=== PATIENT | female | born 2000 | race Caucasian/White ===

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

== ENCOUNTER 2018-02-18 18:29 | Emergency (ER) | payer OTHER ==
[~2018-02-18] VITALS: Ht 167.6 cm; Wt 59.1 kg
[2018-02-18 18:31] VITALS: TEMP 97.4
[2018-02-18 18:55] LABS: BASO % 0.6 % (0.0-2.0); EOS # 0.5 (0.0-0.7); EOS % 8.4 % (0-4.0); GRAN # 2.9 (1.4-6.5); GRAN % 47.2 % (42.2-75.2); HEMOGLOBIN 11.2 g/dl (12.0-15.0); LYMPH # 2.2 (1.2-3.4); LYMPH % 35.7 % (20.0-51.0); MEAN CELL VOLUME 88 fl (80.0-95.0); MEAN CORPUSCULAR HEMOGLOBIN 29 pg (26.0-32.0); MEAN CORPUSCULAR HGB CONC 33 g/dl (33.0-37.0); MEAN PLATELET VOLUME 10.1 fl (7.4-10.4); MONO # 0.5 (0.1-0.6); MONO % 7.9 % (1.7-9.3); PLATELET COUNT 235 K/mm3 (130-400); RED BLOOD COUNT 3.89 M/mm3 (4.10-5.30); REDCELL DISTRIBUTION WIDTH-CV 12.4 % (11.5-14.5)
[2018-02-18 18:58] LABS: HEMATOCRIT 34.1 % (35.0-45.0)
[2018-02-18 19:12] LABS: ALBUMIN 4.2 gm/dL (3.5-5.0); BILIRUBIN,TOTAL 0.2 mg/dL (0.0-1.0); CALCIUM 8.9 mg/dL (8.4-10.2); CREATININE, serum 0.69 mg/dL (0.52-1.25); POTASSIUM 3.6 mmol/L (3.4-5.0); TOTAL PROTEIN 6.8 gm/dL (6.4-8.2)
[2018-02-18] MEDS ORDERED: FLEXERIL5 MG PO (19:47)
[2018-02-18 19:56] VITALS: BP 122/77; PULSE 85
== END 2018-02-18 19:56 | disposition home or self-care (01) ==
LOC: COL.ER 18:29
PROVIDERS: Emergency Medicine
DX: S09.90XA Unspecified injury of head, initial encounter (principal); S00.93XA Contusion of unspecified part of head, initial encounter; S93.401A Sprain of unspecified ligament of right ankle, initial encounter; S13.4XXA Sprain of ligaments of cervical spine, initial encounter; F17.210 Nicotine dependence, cigarettes, uncomplicated; V43.62XA Car passenger injured in collision with other type car in traffic accident, initial encounter

== ENCOUNTER 2019-02-15 17:45 | Emergency (ER) | payer OTHER ==
[~2019-02-15] VITALS: Ht 167.6 cm; Wt 60.5 kg
[~2019-02-15 17:45] MED LIST changes: +FLEXERIL5 MG PO
[2019-02-15] MEDS ORDERED: WELLBUTRIN SR150 M1 (17:58)
[2019-02-15 19:16] LABS: CALCIUM 9.9 mg/dL (8.4-10.2); CREATININE, serum 0.83 (0.52-1.25); POTASSIUM 3.9 mmol/L (3.4-5.0)
[2019-02-15 20:16] VITALS: BP 132/82; PULSE 83; TEMP 98.4
== END 2019-02-15 20:11 | disposition home or self-care (01) ==
LOC: COL.ER 17:45
PROVIDERS: Nurse Practitioner
DX: T67.3XXA Heat exhaustion, anhydrotic, initial encounter (principal); F32.9 Major depressive disorder, single episode, unspecified; F41.9 Anxiety disorder, unspecified; F17.210 Nicotine dependence, cigarettes, uncomplicated; F12.90 Cannabis use, unspecified, uncomplicated; Z88.0 Allergy status to penicillin
CPT/HCPCS: J7030

== ENCOUNTER 2019-02-26 14:24 | Emergency (ER) | payer OTHER ==
[~2019-02-26] VITALS: Ht 167.6 cm; Wt 54.5 kg
[~2019-02-26 14:24] MED LIST changes: +WELLBUTRIN SR150 M1
[2019-02-26 14:31] VITALS: BP 115/65; TEMP 98.5
[2019-02-26 15:42] LABS: STREP SCREEN NEGATIVE
[2019-02-26 16:02] VITALS: PULSE 100
== END 2019-02-26 16:02 | disposition home or self-care (01) ==
LOC: COL.ER 14:24
PROVIDERS: Nurse Practitioner Primary Care
DX: J02.8 Acute pharyngitis due to other specified organisms (principal); F41.9 Anxiety disorder, unspecified; F32.9 Major depressive disorder, single episode, unspecified; F17.210 Nicotine dependence, cigarettes, uncomplicated; Z88.0 Allergy status to penicillin
CPT/HCPCS: J1885

== ENCOUNTER 2019-04-03 23:56 | Emergency (ER) | payer OTHER ==
[~2019-04-03] VITALS: Ht 167.6 cm; Wt 54.5 kg
[2019-04-04 00:02] VITALS: TEMP 97.8
[2019-04-04 00:52] LABS: BASO # 0.1 (0.0-0.2); BASO % 0.8 % (0.0-2.0); EOS # 0.2 (0.0-0.7); EOS % 2.1 % (0-4.0); GRAN # 5.3 (1.4-6.5); GRAN % 58.8 % (42.2-75.2); HEMOGLOBIN 13.4 g/dl (12.0-15.0); LYMPH # 2.7 (1.2-3.4); LYMPH % 29.8 % (20.0-51.0); MEAN CELL VOLUME 84 fl (80.0-95.0); MEAN CORPUSCULAR HEMOGLOBIN 29 pg (26.0-32.0); MEAN CORPUSCULAR HGB CONC 34 g/dl (33.0-37.0); MEAN PLATELET VOLUME 9.5 fl (7.4-10.4); MONO # 0.7 (0.1-0.6); MONO % 8.2 % (1.7-9.3); PLATELET COUNT 296 K/mm3 (130-400); RED BLOOD COUNT 4.65 M/mm3 (4.10-5.30); REDCELL DISTRIBUTION WIDTH-CV 13.8 % (11.5-14.5)
[2019-04-04 01:05] LABS: ALANINE AMINOTRANSFERASE 8 U/L (9-52); ALBUMIN 4.9 gm/dL (3.5-5.0); ALKALINE PHOSPHATASE 83 U/L (50-136); ANION GAP 13 mmol/L (7-16); AST,SGOT 17 U/L (15-37); BILIRUBIN,TOTAL 1.1 mg/dL (0.0-1.0); BLOOD UREA NITROGEN 15 mg/dL (7-17); CALCIUM 9.8 mg/dL (8.4-10.2); CARBON DIOXIDE 19 mmol/L (22-30); CHLORIDE 106 mmol/L (98-107); CREATININE, serum 0.79 (0.52-1.25); GLUCOSE 78 mg/dL (74-106); POTASSIUM 3.7 mmol/L (3.4-5.0); SODIUM 138 mmol/L (137-145); TOTAL PROTEIN 7.9 gm/dL (6.4-8.2)
[2019-04-04 01:06] LABS: ACETAMINOPHEN < 10 ug/mL (10-30); ALCOHOL(ethanol),MEDICAL < 10 mg/dL; C-REACTIVE PROTEIN < 0.5 mg/dL (0.0-0.9); SALICYLATE < 1.0 mg/dL
[2019-04-04 05:16] VITALS: BP 120/78; PULSE 86
== END 2019-04-04 06:07 | disposition home or self-care (01) ==
LOC: COL.ER 23:56
PROVIDERS: Nurse Practitioner
DX: F15.10 Other stimulant abuse, uncomplicated (principal); F41.9 Anxiety disorder, unspecified; F32.9 Major depressive disorder, single episode, unspecified; F17.210 Nicotine dependence, cigarettes, uncomplicated; Z88.0 Allergy status to penicillin
CPT/HCPCS: J2060; J7030

== ENCOUNTER 2019-04-11 17:54 | Emergency (ER) | payer OTHER ==
[~2019-04-11] VITALS: Ht 167.6 cm; Wt 50.9 kg
[2019-04-11 18:00] VITALS: BP 128/76; TEMP 96.8
[2019-04-11 19:06] LABS: COLLECTION METHOD CLEAN CATCH
[2019-04-11 19:13] LABS: MUCOUS Present /lpf; PH 5 (5-8); SQUAMOUS EPITHELIAL >50 /hpf; URINE APPEARANCE Cloudy; URINE BACTERIA Rare /hpf; URINE BILIRUBIN Negative (NEGATIVE); URINE BLOOD Negative (NEGATIVE); URINE COLOR Amber; URINE GLUCOSE Negative (NEGATIVE); URINE KETONE Negative (NEGATIVE); URINE LEUKOCYTE ESTERASE 2+ (NEGATIVE); URINE NITRATE Negative (NEGATIVE); URINE PROTEIN(semi-quant) 3+ (NEGATIVE)
[2019-04-11] MEDS ORDERED: MACROBID 1100 MG/CAP PO (19:22)
[2019-04-11 19:50] VITALS: PULSE 75
== END 2019-04-11 20:00 | disposition home or self-care (01) ==
LOC: COL.ER 17:54
PROVIDERS: Physician Assistant
DX: J45.909 Unspecified asthma, uncomplicated (principal); J02.9 Acute pharyngitis, unspecified; F19.10 Other psychoactive substance abuse, uncomplicated

== ENCOUNTER 2019-04-29 08:22 | Emergency (ER) | payer OTHER ==
[~2019-04-29 08:22] MED LIST changes: +MACROBID 1100 MG/CAP PO
[2019-04-29 09:25] LABS: COLLECTION METHOD CLEAN CATCH
[2019-04-29 09:31] LABS: BASO # 0.1 (0.0-0.2); BASO % 0.6 % (0.0-2.0); EOS # 1.1 (0.0-0.7); EOS % 9.1 % (0-4.0); GRAN # 7.8 (1.4-6.5); GRAN % 63.1 % (42.2-75.2); HEMATOCRIT 40.2 % (35.0-45.0); HEMOGLOBIN 13.4 g/dl (12.0-15.0); LYMPH # 2.5 (1.2-3.4); LYMPH % 19.8 % (20.0-51.0); MEAN CELL VOLUME 87 fl (80.0-95.0); MEAN CORPUSCULAR HEMOGLOBIN 29 pg (26.0-32.0); MEAN CORPUSCULAR HGB CONC 33 g/dl (33.0-37.0); MEAN PLATELET VOLUME 9.8 fl (7.4-10.4); MONO # 0.9 (0.1-0.6); MONO % 7.1 % (1.7-9.3); PLATELET COUNT 301 K/mm3 (130-400); RED BLOOD COUNT 4.61 M/mm3 (4.10-5.30); REDCELL DISTRIBUTION WIDTH-CV 13.8 % (11.5-14.5)
[2019-04-29 09:53] LABS: ALANINE AMINOTRANSFERASE 20 U/L (9-52); ALBUMIN 4.7 gm/dL (3.5-5.0); ALKALINE PHOSPHATASE 84 U/L (50-136); ANION GAP 8 mmol/L (7-16); AST,SGOT 27 U/L (15-37); BILIRUBIN,TOTAL 0.5 mg/dL (0.0-1.0); BLOOD UREA NITROGEN 10 mg/dL (7-17); CALCIUM 9.5 mg/dL (8.4-10.2); CARBON DIOXIDE 27 mmol/L (22-30); CHLORIDE 106 mmol/L (98-107); CREATININE, serum 0.68 (0.52-1.25); GLUCOSE 81 mg/dL (74-106); LIPASE 37 U/L (23-300); POTASSIUM 3.9 mmol/L (3.4-5.0); SODIUM 140 mmol/L (137-145); TOTAL PROTEIN 7.6 gm/dL (6.4-8.2)
[2019-04-29 09:54] LABS: C-REACTIVE PROTEIN < 0.5 mg/dL (0.0-0.9)
[2019-04-29 10:05] LABS: TROPONIN-I < 0.012 ng/mL (0.000-0.035)
[2019-04-29 10:11] LABS: MUCOUS Present /lpf; PH 7 (5-8); URINE APPEARANCE Cloudy; URINE BACTERIA None Seen /hpf; URINE BILIRUBIN Negative (NEGATIVE); URINE BLOOD 1+ (NEGATIVE); URINE COLOR Yellow; URINE GLUCOSE Negative (NEGATIVE); URINE KETONE Negative (NEGATIVE); URINE LEUKOCYTE ESTERASE Negative (NEGATIVE); URINE NITRATE Negative (NEGATIVE); URINE PROTEIN(semi-quant) 2+ (NEGATIVE); URINE RBC 0-2 /hpf; URINE UROBILINOGEN Negative (NEGATIVE)
[2019-04-29] MEDS ORDERED: FLEXERIL 1010 MG/TAB PO (10:34)
[2019-04-29] MEDS ORDERED: OMNICEF 300MG300 MG PO (10:35)
[2019-04-29 10:43] VITALS: BP 128/90; PULSE 109; TEMP 97.8
== END 2019-04-29 10:55 | disposition home or self-care (01) ==
LOC: COL.ER 08:22
PROVIDERS: Emergency Medicine
DX: N39.0 Urinary tract infection, site not specified (principal); R07.89 Other chest pain; F17.210 Nicotine dependence, cigarettes, uncomplicated
CPT/HCPCS: A4216; J0696; J1885; J7030

== ENCOUNTER 2019-05-23 11:27 | Inpatient (IN) | payer OTHER ==
[~2019-05-23] VITALS: Ht 167.6 cm; Wt 54.2 kg
[2019-05-23] VITALS (301 sets, daily range): BP systolic 107–117; BP diastolic 58–81; PULSE 118–130; TEMP 98; O2SAT 88–100
[~2019-05-23 11:27] MED LIST changes: +FLEXERIL 1010 MG/TAB PO
[2019-05-23 11:47] LABS: BASO % 0.6 % (0.0-2.0); EOS # 0.4 (0.0-0.7); EOS % 6.7 % (0-4.0); GRAN # 2.9 (1.4-6.5); GRAN % 54.6 % (42.2-75.2); HEMATOCRIT 36.5 % (35.0-45.0); HEMOGLOBIN 12.6 g/dl (12.0-15.0); LYMPH # 1.3 (1.2-3.4); MEAN CELL VOLUME 87 fl (80.0-95.0); MEAN CORPUSCULAR HEMOGLOBIN 30 pg (26.0-32.0); MEAN CORPUSCULAR HGB CONC 35 g/dl (33.0-37.0); MEAN PLATELET VOLUME 9.3 fl (7.4-10.4); MONO # 0.7 (0.1-0.6); MONO % 13.9 % (1.7-9.3); PLATELET COUNT 239 K/mm3 (130-400); RED BLOOD COUNT 4.21 M/mm3 (4.10-5.30); REDCELL DISTRIBUTION WIDTH-CV 13.2 % (11.5-14.5)
[2019-05-23 11:59] LABS: ALANINE AMINOTRANSFERASE 24 U/L (9-52); ALBUMIN 4.4 gm/dL (3.5-5.0); ALKALINE PHOSPHATASE 89 U/L (50-136); ANION GAP 11 mmol/L (7-16); AST,SGOT 14 U/L (15-37); BILIRUBIN,TOTAL 0.3 mg/dL (0.0-1.0); BLOOD UREA NITROGEN 14 mg/dL (7-17); CALCIUM 8.8 mg/dL (8.4-10.2); CARBON DIOXIDE 24 mmol/L (22-30); CHLORIDE 107 mmol/L (98-107); CREATINE KINASE 29 U/L (30-135); CREATININE, serum 0.76 (0.52-1.25); GLUCOSE 81 mg/dL (74-106); POTASSIUM 3.2 mmol/L (3.4-5.0); SODIUM 141 mmol/L (137-145); TOTAL PROTEIN 7.4 gm/dL (6.4-8.2)
[2019-05-23 12:15] LABS: ARTERIAL BLD GAS O2 SATURATION 97.3 % (92-100); ARTERIAL BLD GAS TCO2 CT 20.9; ARTERIAL BLOOD GAS BASE EXCESS -3.6 (-2-2); ARTERIAL BLOOD GAS HCO3 19.9 meq/L (22-26); ARTERIAL BLOOD GAS PCO2 31.3 mmHg (35-45); ARTERIAL BLOOD GAS PO2 100.6 mmHg (80-100); ARTERIAL BLOOD GAS pH 7.42 (7.35-7.45)
[2019-05-23 12:25] LABS: ACETAMINOPHEN < 10 ug/mL (10-30); ALCOHOL(ethanol),MEDICAL < 10 mg/dL; SALICYLATE < 1.0 mg/dL
[2019-05-23 12:29] LABS: COLLECTION METHOD CLEAN CATCH
[2019-05-23 12:37] LABS: MUCOUS Present /lpf; PH 6 (5-8); URINE APPEARANCE Clear; URINE BACTERIA None Seen /hpf; URINE BILIRUBIN Negative (NEGATIVE); URINE BLOOD Negative (NEGATIVE); URINE COLOR Yellow; URINE GLUCOSE Negative (NEGATIVE); URINE KETONE 1+ (NEGATIVE); URINE LEUKOCYTE ESTERASE Negative (NEGATIVE); URINE NITRATE Negative (NEGATIVE); URINE PROTEIN(semi-quant) 1+ (NEGATIVE); URINE RBC 0-2 /hpf; URINE UROBILINOGEN >=4.0 mg/dL (NEGATIVE)
[2019-05-23 12:47] LABS: TRICYCLIC ANTIDEPRESS URINE POSITIVE
--- NOTE | 2019-05-23 15:45 | NUR ---
phone report received from LUIGI Flores RN. Pt arrived to ICU bed 3 via stretcher. Pt very lethargic, opens eyes briefly to name. does not follow any commands. tries to sit up and get out of bed. Pt transferred to ICU bed and connected to monitor. Pt becomes agitated and tries to push nurses away. Attempted to orient pt to place and time. Pt has slurred, incoherent speech. Pt calms down once explain her Grandmother is in the waiting room. HR ST on monitor. Pt on suicide precautions and seizure precautions.
[2019-05-23 16:37] LABS: CALCIUM 8.8 mg/dL (8.4-10.2); CREATININE, serum 0.73 (0.52-1.25); POTASSIUM 3.2 mmol/L (3.4-5.0)
--- NOTE | 2019-05-23 17:30 | NUR ---
Pt somnolent. laying in bed. occasionally wakes up and picks at gown and IV. Pt does not follow direction. speech incoherent. Turns away from nurse and falls back asleep. Continue to monitor.
--- NOTE | 2019-05-23 19:10 | NUR ---
Report given to LARA hwang.
--- NOTE | 2019-05-23 19:30 | NUR ---
PT WOKE UP, DID NOT RESPOND TO ANY QUESTION AND WENT RIGHT BACK TO SLEEP IN LESS THAN A MINUTE.
--- NOTE | 2019-05-23 20:00 | NUR ---
PT WILL SOMETIMES WAKE UP AND MUMBLES SOME WORDS BUT INCOHERENT. PT DOES NOT AMSWER TO ANY QUESTIONS AT ALL, POOR EYE CONTACT, AND DOES NOT FOLLOW COMMANDS. EKG DONE. PT REMAINS 1:1, ALL PRECAUTION IN PLACE. WILL CONTINUE TO MONITOR.
--- NOTE | 2019-05-23 22:41 | NUR ---
2024 - poison control nurse Shine called and updated regarding pt's status. 2149 - pt's mom Oanh called and updated regarding pt's status. Oanh is requesting to have pt's mouth swabbed with damp sponge and requesting to be called if anything happens. Also, Oanh is okay with this nurse cutting pt's bra for suicidal precautions. will continue monitoring pt.
[2019-05-24] VITALS (585 sets, daily range): BP systolic 104–131; BP diastolic 56–85; PULSE 101–136; TEMP 97.8–98.5; O2SAT 92–98
--- NOTE | 2019-05-24 00:06 | NUR ---
PT CURRENTLY SLEEPING IN BED, APPEARS TO BE COMFORTABLE WITH NO DISCOMFIRT NOTED. PT REMAINS ON 1:1 OBSERVATION AND WILL CONTINUE TO MONITOR. VSS.
[2019-05-24 00:49] LABS: CALCIUM 8.8 mg/dL (8.4-10.2); CREATININE, serum 0.68 (0.52-1.25); POTASSIUM 4.2 mmol/L (3.4-5.0)
--- NOTE | 2019-05-24 02:57 | NUR ---
PT WENT TO THE BATHROOM WITH STANDBY ASSIST, ABLE TO URINATE AND DOMINICK IN COLOR. PT ALERT AND ORIENTED X3, BUT DISORIENTED TO WHY IS SHE HERE. PT ALSO CONFUSED, VERBALIZING SOME PAXTON NAMED ELLA WHO IS A FOOTYBALL PLAYER LYING NEXT TO HER, OR SOME MCCLAIN THAT WAS IN THE ROOM WHERE NO OTHER PERSON PRESENT IN THE ROOM EXCEPT THIS UNION STEWARD AND PT. PT THEN WANTED A FLASHLIGHT AND WHEN ASKED WHY, PT RESPONDED THAT SHE IS GONNA PLAY TAG WITH THIS NURSE. PT REORIENTED. PT ASKING FOR PAIN MEDICATION SHE WAS HURTING IN HER ARM(IV SITE) AND TO MAKE HERSELF SLEEP, THIS RN EXPLAINED THAT IT IS NORMAL FOR THE SITE TO BE SORE RIGHT NOW AND THAT PT HAS BEEN SLEEPING THE WHOLE TIME. WE AGREED TO TRY SOME WARM BLANKET AND HAVE HER WATCH TV AND RE-EVALUATE LATER. PT FELL ASLEEP SOON THIS RN WALKED OUT OF THE ROOM. PT REMAINS 1:1 OBSERVATION, ALL PRECAUTIONS IN PLACE AND WILL CONTINUE TO MONITOR.
--- NOTE | 2019-05-24 05:35 | NUR ---
PT CONTROL NURSE AMA CALLED AND UPDATED REGARDING PT'S NIGHT.
[2019-05-24 06:24] LABS: BASO % 0.4 % (0.0-2.0); EOS # 0.2 (0.0-0.7); EOS % 2.2 % (0-4.0); GRAN % 77.2 % (42.2-75.2); HEMOGLOBIN 11.2 g/dl (12.0-15.0); LYMPH # 0.9 (1.2-3.4); LYMPH % 11.5 % (20.0-51.0); MEAN CELL VOLUME 88 fl (80.0-95.0); MEAN CORPUSCULAR HEMOGLOBIN 29 pg (26.0-32.0); MEAN CORPUSCULAR HGB CONC 33 g/dl (33.0-37.0); MEAN PLATELET VOLUME 9.7 fl (7.4-10.4); MONO # 0.7 (0.1-0.6); MONO % 8.4 % (1.7-9.3); PLATELET COUNT 213 K/mm3 (130-400); RED BLOOD COUNT 3.87 M/mm3 (4.10-5.30); REDCELL DISTRIBUTION WIDTH-CV 13.3 % (11.5-14.5)
[2019-05-24 06:36] LABS: ALBUMIN 3.9 gm/dL (3.5-5.0); BILIRUBIN,TOTAL 0.6 mg/dL (0.0-1.0); CALCIUM 8.9 mg/dL (8.4-10.2); CREATININE, serum 0.66 (0.52-1.25); MAGNESIUM 1.7 mg/dL (1.6-2.3); POTASSIUM 3.9 mmol/L (3.4-5.0); TOTAL PROTEIN 6.7 gm/dL (6.4-8.2)
--- NOTE | 2019-05-24 09:57 | NUR ---
Dr. Schmidt rounds at this time. Orders recieved to advance diet and provide patient with chloraseptic spray for sore throat. Will medically clear patient for psychiatric screening process. Care ongoing.
--- NOTE | 2019-05-24 11:28 | NUR ---
Patient visits with [facility] screen[facility] at this time.
--- NOTE | 2019-05-24 11:35 | NUR ---
Anny Ch contacts this RN and indicates plans for patient voluntary inpatient admission. She also indicates that should patient change her mind and become involuntary her recommendation will remain for in patient placment involuntarily. Care ongoing.
--- NOTE | 2019-05-24 13:43 | NUR ---
plan: To return home with roommate Liu. as care support. Patient did not list an emergency contact, and declined a DPOA at this time. The patient resides in [facility]. Assess: SW met with patient.Patient was half sleep during entire interview, and had to be prompted to wake up serveral time. Patient indicated independence at home with no DME, and that she does not have a primary care provider. Patient reports that she gets her medication from [facility] with no concerns. Patient denied any concerns at this time. Action: Will leave mental health information for follow up social security specialist to provide patient.
--- NOTE | 2019-05-24 14:24 | NUR ---
[facility] calls with follow up questions regarding referral sent from [facility] for patient placment. Care ongoing.
--- NOTE | 2019-05-24 14:26 | NUR ---
Alicia, Grandmother called with update. All questions asked answered. Care onoging.
--- NOTE | 2019-05-24 14:37 | NUR ---
[facility] screener calls to report patient has been accepted to [facility].
--- NOTE | 2019-05-24 16:10 | NUR ---
Patient assisted to dress in street clothes without any possible ligature items. She is provided a tampon as she has started her period. Support is provided regarding transfer to inpatient facility.
--- NOTE | 2019-05-24 16:12 | NUR ---
Patient departs with [facility] secure transport. Report is called to [facility] and call back number provided for any questions.
== END 2019-05-24 16:12 | DRG 918 ==
LOC: COL.ER 11:27 → ICU 14:47
PROVIDERS: Emergency Medicine; Physician Assistant; ADMIT Student in an Organized Health Care Education/Training Program
DX: T43.292A Poisoning by other antidepressants, intentional self-harm, initial encounter (principal); F32.9 Major depressive disorder, single episode, unspecified; F17.210 Nicotine dependence, cigarettes, uncomplicated; E87.6 Hypokalemia; R00.0 Tachycardia, unspecified; R80.9 Proteinuria, unspecified; Z88.0 Allergy status to penicillin
CPT/HCPCS: 99222-AI; 99232-AI; 99239; J3480; J7030

== ENCOUNTER 2019-09-16 18:13 | Emergency (ER) | payer OTHER ==
[~2019-09-16] VITALS: Ht 167.6 cm; Wt 47.7 kg
[~2019-09-16 18:13] MED LIST changes: +CEFTIN500 MG PO; +PYRIDIUM200 M1 PO
[2019-09-16 18:19] VITALS: TEMP 97.9
[2019-09-16 18:46] LABS: COLLECTION METHOD CLEAN CATCH
[2019-09-16 18:58] LABS: MUCOUS Present /lpf; PH 5 (5-8); SQUAMOUS EPITHELIAL 0-2 /hpf; URINE APPEARANCE Hazy; URINE BACTERIA Rare /hpf; URINE BILIRUBIN Negative (NEGATIVE); URINE BLOOD 1+ (NEGATIVE); URINE COLOR Yellow; URINE GLUCOSE Negative (NEGATIVE); URINE KETONE Negative (NEGATIVE); URINE LEUKOCYTE ESTERASE Negative (NEGATIVE); URINE NITRATE Positive (NEGATIVE); URINE PROTEIN(semi-quant) 2+ (NEGATIVE); URINE UROBILINOGEN Negative (NEGATIVE)
[2019-09-16 19:01] LABS: TRICYCLIC ANTIDEPRESS URINE NEGATIVE
[2019-09-16 19:12] LABS: BASO % 0.5 % (0.0-2.0); EOS # 0.2 (0.0-0.7); EOS % 2.3 % (0-4.0); GRAN # 5.2 (1.4-6.5); GRAN % 66.2 % (42.2-75.2); HEMATOCRIT 37.6 % (35.0-45.0); HEMOGLOBIN 12.2 g/dl (12.0-15.0); LYMPH # 1.8 (1.2-3.4); LYMPH % 22.7 % (20.0-51.0); MEAN CELL VOLUME 89 fl (80.0-95.0); MEAN CORPUSCULAR HEMOGLOBIN 29 pg (26.0-32.0); MEAN CORPUSCULAR HGB CONC 32 g/dl (33.0-37.0); MEAN PLATELET VOLUME 9.5 fl (7.4-10.4); MONO # 0.6 (0.1-0.6); MONO % 7.4 % (1.7-9.3); PLATELET COUNT 269 K/mm3 (130-400); RED BLOOD COUNT 4.23 M/mm3 (4.10-5.30); REDCELL DISTRIBUTION WIDTH-CV 13.2 % (11.5-14.5)
[2019-09-16 19:27] LABS: ALANINE AMINOTRANSFERASE 13 U/L (4-34); ALBUMIN 4.6 gm/dL (3.5-5.0); ALKALINE PHOSPHATASE 113 U/L (50-136); ANION GAP 9 mmol/L (7-16); AST,SGOT 19 U/L (15-37); BILIRUBIN,TOTAL 0.2 mg/dL (0.0-1.0); BLOOD UREA NITROGEN 15 mg/dL (7-17); CARBON DIOXIDE 26 mmol/L (22-30); CHLORIDE 107 mmol/L (98-107); CREATININE, serum 0.67 (0.52-1.25); GLUCOSE 68 mg/dL (74-106); POTASSIUM 3.7 mmol/L (3.4-5.0); SODIUM 141 mmol/L (137-145); TOTAL PROTEIN 7.3 gm/dL (6.4-8.2)
[2019-09-16 19:36] LABS: ACETAMINOPHEN < 10 ug/mL (10-30); ALCOHOL(ethanol),MEDICAL < 10 mg/dL; SALICYLATE < 1.0 mg/dL
[2019-09-16 22:18] VITALS: BP 135/76; PULSE 80
== END 2019-09-16 22:18 | disposition home or self-care (01) ==
LOC: COL.ER 18:13
PROVIDERS: Emergency Medicine
DX: R45.851 Suicidal ideations (principal); F32.9 Major depressive disorder, single episode, unspecified; F19.10 Other psychoactive substance abuse, uncomplicated; F17.210 Nicotine dependence, cigarettes, uncomplicated

== ENCOUNTER 2019-12-27 04:09 | Emergency (ER) | payer OTHER ==
[~2019-12-27] VITALS: Ht 167.6 cm; Wt 63.6 kg
[2019-12-27 04:20] VITALS: BP 131/86; TEMP 99.1
[2019-12-27 05:55] VITALS: PULSE 91
== END 2019-12-27 05:50 | disposition home or self-care (01) ==
LOC: COL.ER 04:09
DX: O9A.212 Injury, poisoning and certain other consequences of external causes complicating pregnancy, second trimester (principal); O99.342 Other mental disorders complicating pregnancy, second trimester; O99.332 Smoking (tobacco) complicating pregnancy, second trimester; S00.83XA Contusion of other part of head, initial encounter; S91.342A Puncture wound with foreign body, left foot, initial encounter; S91.341A Puncture wound with foreign body, right foot, initial encounter; M54.5 Low back pain; F32.9 Major depressive disorder, single episode, unspecified; F41.9 Anxiety disorder, unspecified; F17.210 Nicotine dependence, cigarettes, uncomplicated; F43.10 Post-traumatic stress disorder, unspecified; Z23 Encounter for immunization; Z3A.14 14 weeks gestation of pregnancy; Y04.2XXA Assault by strike against or bumped into by another person, initial encounter; Y07.03 Male partner, perpetrator of maltreatment and neglect

== ENCOUNTER 2020-05-02 16:41 | Outpatient (CLI) | payer MEDICAID ==
[~2020-05-02] VITALS: Ht 167.6 cm; Wt 75.5 kg
--- NOTE | 2020-05-02 16:35 | NUR ---
Presents to labor and delivery. States had a fall today. Says fell on left side. Says wanted to make sure everything is okay with baby. Assessment done. questions offered and answered.
[2020-05-02 16:47] VITALS: BP 133/72; PULSE 98; TEMP 97.4
[2020-05-02] MEDS ORDERED: PROAIR HFA0.09 MG/AC IH (17:01)
[2020-05-02] MEDS ORDERED: NATURE'S BLEND1 T11 (17:02)
--- NOTE | 2020-05-02 18:00 | NUR ---
Dismiss to home with instructions. Alert, stable, ambulatory.
== END 2020-05-02 18:00 | disposition home or self-care (01) ==
LOC: LDRO 16:41
DX: O9A.213 Injury, poisoning and certain other consequences of external causes complicating pregnancy, third trimester (principal); Z3A.32 32 weeks gestation of pregnancy; F17.210 Nicotine dependence, cigarettes, uncomplicated

== ENCOUNTER 2020-05-26 20:46 | Outpatient (CLI) | payer MEDICAID ==
[~2020-05-26] VITALS: Ht 170.2 cm; Wt 77.4 kg
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
[~2020-05-26 20:46] MED LIST changes: +NATURE'S BLEND1 T11
[2020-05-26 21:04] VITALS: BP 127/62; PULSE 105; TEMP 97.8
--- NOTE | 2020-05-26 21:04 | NUR ---
2103-Taken off EFM per MD order. 2114-Reviewed discharge instructions and when to return to unit. Verbalized understanding of instructions. 2120-Ambulatory off unit.
[2020-05-26] MEDS ORDERED: PRENATAL (21:05)
== END 2020-05-26 21:21 | disposition home or self-care (01) ==
LOC: LDRO 20:46
DX: O26.893 Other specified pregnancy related conditions, third trimester (principal); Z3A.36 36 weeks gestation of pregnancy; Z87.891 Personal history of nicotine dependence; Z86.19 Personal history of other infectious and parasitic diseases

== ENCOUNTER 2020-06-19 07:50 | Outpatient (CLI) | payer MEDICAID ==
[~2020-06-19] VITALS: Ht 167.6 cm; Wt 79.5 kg
[~2020-06-19 07:50] MED LIST changes: +PRENATAL
[2020-06-19 08:30] VITALS: BP 106/64; PULSE 113; TEMP 97.6
--- NOTE | 2020-06-19 08:38 | NUR ---
PT HERE FOR LABOR CHECK. HAS BEEN HAVING CONTRACTIONS THE LAST COUPLE OF DAYS AND INCREASING IN FREQUENCY. REPORTS SHE HAS LOST HER MUCOUS PLUG. FHT'S FOUND IN THE 125-130 RANGE WITH MODERATE VARIABILITY AND ACCELS. CERVIX CLOSED/THICK/-2 BUT BALLOTABLE.
== END 2020-06-19 08:55 | disposition home or self-care (01) ==
LOC: LDRO 07:50
DX: O62.9 Abnormality of forces of labor, unspecified (principal); Z3A.39 39 weeks gestation of pregnancy

== ENCOUNTER 2020-06-20 20:24 | Inpatient (IN) | payer MEDICAID ==
[~2020-06-20] VITALS: Ht 170.2 cm; Wt 79.5 kg
[2020-06-20] VITALS (12 sets, daily range): BP systolic 127–152; BP diastolic 66–98; PULSE 99–111; TEMP 98.2
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
--- NOTE | 2020-06-20 21:15 | NUR ---
2114 IV STARTED AND IVPB PEN G GIVEN. BECOMING MORE UNCOMFORTABLE WITH CONTRACTIONS AND ON AIR HOST NOTIFIED FOR EPID.
[2020-06-20 21:28] LABS: BASO # 0.1 (0.0-0.2); BASO % 0.3 % (0.0-2.0); EOS # 0.3 (0.0-0.7); EOS % 2.1 % (0-4.0); GRAN # 11.1 (1.4-6.5); GRAN % 76.4 % (42.2-75.2); HEMOGLOBIN 10.1 g/dl (12.5-16.0); LYMPH # 1.9 (1.2-3.4); LYMPH % 13.1 % (20.0-51.0); MEAN CELL VOLUME 80 fl (80.0-100.0); MEAN CORPUSCULAR HEMOGLOBIN 25 pg (27.0-31.0); MEAN CORPUSCULAR HGB CONC 31 g/dl (33.0-37.0); MEAN PLATELET VOLUME 9.8 fl (7.4-10.4); MONO % 7.2 % (1.7-9.3); PLATELET COUNT 226 K/mm3 (130-400); RED BLOOD COUNT 4.03 M/mm3 (4.10-5.30); REDCELL DISTRIBUTION WIDTH-CV 13.9 % (11.5-14.5)
[2020-06-20 21:31] LABS: HEMATOCRIT 32.2 % (37.0-47.0)
--- NOTE | 2020-06-20 21:40 | NUR ---
2140 SITTING ON SIDE OF BED FOR EPID PLACEMENT. SEE ANESTHSIA RECORD FOR MORE INFORMATION.
--- NOTE | 2020-06-20 23:30 | NUR ---
2330 SVE AND RESULTS CALLED TO DR FOX. FEELING CRAMPING PAIN ON RIGHT SIDE. TURNED TO RIGHT LATERAL WITH PEANUT BALL.
[2020-06-20 23:39] LABS: TRICYCLIC ANTIDEPRESS URINE NEGATIVE
[2020-06-21] VITALS (24 sets, daily range): BP systolic 115–146; BP diastolic 56–92; PULSE 91–131; TEMP 98–98.3
--- NOTE | 2020-06-21 | NUR ---
0000 SHEET METAL FOREMAN CALLED TO ROOM FOR PT C/O OF RIGHT SIDED PAIN CONTINUING AFTER PROCESS CHEMIST PUSHED AND POSITION CHANGE.
--- NOTE | 2020-06-21 00:15 | NUR ---
0015 FHT BASELINE 105-115. PULSE OX ON. MOMS PULSE DOES NOT MATCH FHTS
--- NOTE | 2020-06-21 01:00 | NUR ---
0100 SROM CL FLUID 8 CM. TURNED FROM RIGHT LATERAL TO LEFT LATERAL. FHT'S DECREASE FROM BL OF 105 TO 90'S. RETURN TO RIGHT LATERAL WITH BASELINE RETURNING TO 105-110
--- NOTE | 2020-06-21 01:35 | NUR ---
0135 C/O PAIN OR PRESSURE. BECOMING AGGITATED. SVE 9CM. UNCOMFORTABLE WITH EXAM. NANOELECTRONICS ENGINEER DOWN TO VISIT REGARDING REPLACING EPID CATH. PT DECLINES. 0145 DR FOX CALLED IN AND REPORTED PT SVE AND FHR BASELINE OF 105-110.
--- NOTE | 2020-06-21 02:59 | NUR ---
0259 VERY PUSHY FEELING. SVE COMPLETE. INSTRUCTED TO PUSH WITH CONTRACTIONS. PT HAVING AN ANXIETY ATTACK. BOYFRIEND VERY SUPPORTIVE. 0306 DR FOX NOTIFIED TO COME TO THE HOSPITAL FOR DELIVERY. PT PUSHES VERY GOOD WITH CONTRACTIONS.
--- NOTE | 2020-06-21 03:20 | NUR ---
0320 DR FOX HERE. READIED FOR DELIVERY 0325 DELIVERY VIABLE MALE OVER 2ND DEGREE LAC WITH 9/9 APGARS. IV CONTS TO INFUSE.
--- NOTE | 2020-06-21 05:30 | NUR ---
0530 IV TO INT. EPID CATH DCD. CAN MOVE LEFT LEG BUT UNABLE TO LIFT OFF THE BED. PERICARE DONE IN BED. TO W/C AND MOVED TO 207. ORIENTED TO ROOM. STATES WOULD LIKE TO TRY AND VOID. AMB TO BR WITH ASSIST X2 AND FLORINA WELL. UNABLE TO VOID. PERICARE DONE. AMB TO BED ON OWN. ICE PACK ON FOR C/O SOME PERINEAL PAIN.
--- NOTE | 2020-06-21 08:52 | NUR ---
Initial visit attempt; Family resting, Quantity Surveyor left card of congratulations and God's blessings for the of their son and information regarding the presence of Spiritual Care at our hospital.
[2020-06-21] MEDS ORDERED: MOTRIN 800800 MG/TAB PO (21:50)
[2020-06-22 09:18] VITALS: BP 121/78; PULSE 114; TEMP 97.6
[2020-06-22 17:50] VITALS: BP 120/65; PULSE 98; TEMP 98.5
--- NOTE | 2020-06-22 18:40 | NUR ---
Refused bedside report. Ambulating around room. Updated whiteboard and reviewed POC. Informed this nurse that she has completed discharge education videos.
[2020-06-22 19:45] VITALS: BP 124/72; PULSE 112; TEMP 97.5
[2020-06-23] VITALS: PULSE 90
--- NOTE | 2020-06-23 06:30 | NUR ---
Rests in bed, alert. Request pain medication. Percocet 5/325 mg one, ibuprofen 800 mg given per request and as ordered.
[2020-06-23 07:15] VITALS: BP 131/77; PULSE 100; TEMP 97.9
[2020-06-23] MEDS ORDERED: PRENATAL PO (09:08)
--- NOTE | 2020-06-23 11:26 | NUR ---
Came in from the outside. Request pain medication. Percocet 5/325 mg one given per request and as ordered.
--- NOTE | 2020-06-23 12:30 | NUR ---
Rests in bed, alert. Eating noon meal. Discharge instructions given, verbalizes understanding.
--- NOTE | 2020-06-23 17:07 | NUR ---
The baby's cord blood came back negative.
== END 2020-06-23 13:00 | disposition home or self-care (01) | DRG 807 ==
LOC: LDR 20:24 → LDRO 20:24 → OB 21:11 → LDRO 21:11 → LDR 21:11 → OB 06-21 03:48
PROVIDERS: Obstetrics & Gynecology; ADMIT Obstetrics & Gynecology
PROC: 10E0XZZ Delivery of Products of Conception, External Approach (ICD-10-PCS; principal; 2020-06-21)
PROC: 0KQM0ZZ Repair Perineum Muscle, Open Approach (ICD-10-PCS; 2020-06-21)
PROC: 10907ZC Drainage of Amniotic Fluid, Therapeutic from Products of Conception, Via Natural or Artificial Opening (ICD-10-PCS; 2020-06-21)
DX: O99.824 Streptococcus B carrier state complicating childbirth (principal); Z37.0 Single live birth; Z3A.39 39 weeks gestation of pregnancy; O70.1 Second degree perineal laceration during delivery
CPT/HCPCS: J2540; J2795; J7120

== ENCOUNTER 2020-07-02 10:01 | Emergency (ER) | payer MEDICAID ==
[~2020-07-02] VITALS: Ht 167.6 cm; Wt 59.1 kg
[~2020-07-02 10:01] MED LIST changes: +PRENATAL PO
[2020-07-02 11:07] LABS: HEMOGLOBIN 10.2 g/dl (12.5-16.0); MEAN CELL VOLUME 81 fl (80.0-100.0); MEAN CORPUSCULAR HEMOGLOBIN 25 pg (27.0-31.0); MEAN CORPUSCULAR HGB CONC 31 g/dl (33.0-37.0); MEAN PLATELET VOLUME 9.5 fl (7.4-10.4); PLATELET COUNT 255 K/mm3 (130-400); RED BLOOD COUNT 4.07 M/mm3 (4.10-5.30); REDCELL DISTRIBUTION WIDTH-CV 14.1 % (11.5-14.5)
[2020-07-02 11:08] LABS: COLLECTION METHOD CLEAN CATCH
[2020-07-02 11:10] LABS: HEMATOCRIT 32.9 % (37.0-47.0)
[2020-07-02 11:21] LABS: BILIRUBIN,TOTAL 0.6 mg/dL (0.0-1.0); CALCIUM 9.2 mg/dL (8.4-10.2); CREATININE, serum 0.66 (0.52-1.25); POTASSIUM 3.5 mmol/L (3.4-5.0); TOTAL PROTEIN 7.2 gm/dL (6.4-8.2)
[2020-07-02 11:30] LABS: MUCOUS Present /lpf; PH 5 (5-8); URINE APPEARANCE Turbid; URINE BACTERIA None Seen /hpf; URINE BILIRUBIN Negative (NEGATIVE); URINE BLOOD 3+ (NEGATIVE); URINE COLOR Amber; URINE GLUCOSE Negative (NEGATIVE); URINE KETONE 1+ (NEGATIVE); URINE LEUKOCYTE ESTERASE 2+ (NEGATIVE); URINE NITRATE Negative (NEGATIVE); URINE PROTEIN(semi-quant) 2+ (NEGATIVE); URINE RBC 20-50 /hpf; URINE UROBILINOGEN Negative (NEGATIVE)
[2020-07-02 11:32] LABS: C-REACTIVE PROTEIN 13.9 mg/dL (0.0-0.9)
[2020-07-02 12:06] LABS: BAND 9 % (0-10); LYMPHOCYTE 3 % (20.0-51.0); NEUTROPHILS 86 % (42.0-75.2)
[2020-07-02 12:08] LABS: OVALOCYTES 1+; PLATELET ESTIMATE NORMAL (NORMAL)
[2020-07-02] MEDS ORDERED: OMNICEF 300MG300 MG PO (12:33)
[2020-07-02 12:59] VITALS: BP 104/60; PULSE 103; TEMP 99
== END 2020-07-02 13:03 | disposition home or self-care (01) ==
LOC: COL.ER 10:01
PROVIDERS: Physician Assistant
DX: O86.21 Infection of kidney following delivery (principal); O91.22 Nonpurulent mastitis associated with the puerperium; O99.43 Diseases of the circulatory system complicating the puerperium; R00.0 Tachycardia, unspecified; O99.335 Smoking (tobacco) complicating the puerperium; F17.200 Nicotine dependence, unspecified, uncomplicated; Z90.721 Acquired absence of ovaries, unilateral; Z20.828 Contact with and (suspected) exposure to other viral communicable diseases
CPT/HCPCS: J0696; J1170; J2405; J7030

== ENCOUNTER 2020-07-06 19:26 | Emergency (ER) | payer MEDICAID ==
[~2020-07-06] VITALS: Ht 167.6 cm; Wt 71.4 kg
[2020-07-06 19:40] VITALS: TEMP 98.1
[2020-07-06 22:46] VITALS: BP 137/83; PULSE 68
== END 2020-07-06 22:47 | disposition home or self-care (01) ==
LOC: COL.ER 19:26
DX: O89.4 Spinal and epidural anesthesia-induced headache during the puerperium (principal); O91.22 Nonpurulent mastitis associated with the puerperium; O86.21 Infection of kidney following delivery; N12 Tubulo-interstitial nephritis, not specified as acute or chronic; H53.149 Visual discomfort, unspecified; Z79.1 Long term (current) use of non-steroidal anti-inflammatories (NSAID)
CPT/HCPCS: J2405

== ENCOUNTER 2021-06-05 14:08 | Emergency (ER) | payer MEDICAID ==
[~2021-06-05] VITALS: Ht 167.6 cm; Wt 70.0 kg
[2021-06-05 15:45] VITALS: TEMP 101.2
[2021-06-05 16:45] LABS: BASO % 0.2 % (0.0-2.0); EOS % 0.4 % (0-4.0); GRAN # 4.3 K/mm3 (1.4-6.5); GRAN % 75.6 % (42.2-75.2); LYMPH # 0.8 K/mm3 (1.2-3.4); LYMPH % 14.2 % (20.0-51.0); MEAN CELL VOLUME 72 fl (80.0-100.0); MEAN CORPUSCULAR HGB CONC 30 g/dl (33.0-37.0); MEAN PLATELET VOLUME 9.9 fl (7.4-10.4); MONO # 0.5 K/mm3 (0.1-0.6); MONO % 9.4 % (1.7-9.3); PLATELET COUNT 165 K/mm3 (130-400); RED BLOOD COUNT 4.33 M/mm3 (4.10-5.30); REDCELL DISTRIBUTION WIDTH-CV 15.8 % (11.5-14.5)
[2021-06-05 16:46] LABS: HEMATOCRIT 31.3 % (37.0-47.0); HEMOGLOBIN 9.4 g/dl (12.5-16.0); MEAN CORPUSCULAR HEMOGLOBIN 22 pg (27.0-31.0)
[2021-06-05 17:01] LABS: ALANINE AMINOTRANSFERASE 8 U/L (0-55); ALBUMIN 3.7 gm/dL (3.5-5.0); ALKALINE PHOSPHATASE 77 U/L (40-150); ANION GAP 10 mmol/L (7-16); AST,SGOT 11 U/L (5-34); BILIRUBIN,TOTAL 0.3 mg/dL (0.2-1.2); BLOOD UREA NITROGEN 9 mg/dL (7-19); CALCIUM 8.4 mg/dL (8.4-10.2); CARBON DIOXIDE 22 mmol/L (22-29); CHLORIDE 110 mmol/L (98-107); CREATININE, serum 0.67 mg/dL (0.57-1.11); GLUCOSE 85 mg/dL (70-99); POTASSIUM 3.9 mmol/L (3.5-4.5); SODIUM 142 mmol/L (136-145); TOTAL PROTEIN 6.9 gm/dL (6.2-8.1)
[2021-06-05 17:08] LABS: TROPONIN-I < 0.010 ng/mL (0.00-0.033)
[2021-06-05 18:10] VITALS: BP 139/77; PULSE 109
== END 2021-06-05 18:10 | disposition home or self-care (01) ==
LOC: COL.ER 14:08
PROVIDERS: Emergency Medicine
DX: U07.1 COVID-19 (principal); D64.9 Anemia, unspecified; R79.89 Other specified abnormal findings of blood chemistry; R79.1 Abnormal coagulation profile; J45.909 Unspecified asthma, uncomplicated; F17.290 Nicotine dependence, other tobacco product, uncomplicated; Z86.16 Personal history of COVID-19; Z79.899 Other long term (current) drug therapy
CPT/HCPCS: J1885; J7030; Q9967

== ENCOUNTER → 2022-02-21 | Outpatient (CLI) | payer MEDICAID | LOC: COL.RAD 10:18 | DX: R51.9 Headache, unspecified (principal) | CPT/HCPCS: A9575 ==

== ENCOUNTER 2022-03-02 10:59 | Emergency (ER) | payer MEDICAID ==
[~2022-03-02] VITALS: Ht 167.6 cm; Wt 63.6 kg
[2022-03-02 12:05] VITALS: BP 121/65; TEMP 98
[2022-03-02 12:19] VITALS: PULSE 68
== END 2022-03-02 12:19 | disposition home or self-care (01) ==
LOC: COL.ER 10:59
DX: J06.9 Acute upper respiratory infection, unspecified (principal); Z91.040 Latex allergy status; Z28.310 Unvaccinated for COVID-19

== ENCOUNTER → 2022-03-20 | Outpatient (CLI) | payer MEDICAID | LOC: COL.RAD 08:13 | DX: M67.813 Other specified disorders of tendon, right shoulder (principal) ==

== ENCOUNTER 2022-10-19 17:06 | Emergency (ER) | payer MEDICAID ==
[~2022-10-19] VITALS: Ht 170.2 cm; Wt 71.4 kg
[2022-10-19 17:13] VITALS: TEMP 98.5
[2022-10-19] MEDS ORDERED: AMOXICILLIN 50500 MG PO (17:53)
[2022-10-19 18:28] VITALS: BP 122/77; PULSE 76
== END 2022-10-19 18:07 | disposition home or self-care (01) ==
LOC: COL.ER 17:06
DX: O99.611 Diseases of the digestive system complicating pregnancy, first trimester (principal); K02.9 Dental caries, unspecified; O99.331 Smoking (tobacco) complicating pregnancy, first trimester; F17.290 Nicotine dependence, other tobacco product, uncomplicated; Z3A.01 Less than 8 weeks gestation of pregnancy; Z28.310 Unvaccinated for COVID-19